=== PATIENT | female | born 1985 | race Caucasian/White ===

== ENCOUNTER 2016-12-09 11:28 | Inpatient (IN) | payer BC, OTHER ==
[2016-12-09] MEDS ORDERED: Lactated Ringer's 1,000 ML IV SCH (12:00)
--- NOTE | 2016-12-09 12:00 | OBADHP ---
Datetime: 12/09/2016 11:48 Admit Comment, IP Provider: chief complaint-contractions HPI 31 y/o at 38 weeks and 2 days with c/o contractions starting at 9 am.Patient denies vagin al bleeding or loss of fluid course uncomplicated PMH scoliosis PSH denies OBGYN HX ; [id number] Social hx denies tobacco, alcohol or illicit drug use Exam see exam section A/P 31 y/o at 38.2 wga in labor.GBS negative -admit -see order discussed with dr dale Pelvic Type - PN: Adequate Extremities - PN: Normal Abdomen - PN: Normal Back - PN: Normal Lungs - PN: Normal Heart - PN: Normal Neurologic - PN: Normal General - PN: Normal Contraction Comments Provider: irregular Gestation - Est Wks by US: 38.2 IP Hx Assessment: The History has been Reviewed and is Current Vital Signs Provider: Reviewed; Within Normal Limits IP Chief Complaint: Uterine contractions FHR Category Provider Fetus A: Category I Dilatation, Provider: 4-5 Effacement, Provider: 80 Station, Provider: -2 Genitourinary Exam: Normal DTRs - PN: Normal EGA AdmitDate IP: 38.2 IP Adm Impression: Term, intrauterine ; Active labor IP Admit Plan: Admit to unit; Initiate labor protocol
[2016-12-09 12:26] LABS: BASO % 0.2 % (0.0-2.0); EOS % 0.1 % (0.0-4.0); HEMOGLOBIN 12.5 g/dL (11.0-16.0); LYMPH # 2.1 K/uL (1.0-4.3); LYMPH % 20.7 % (20.0-40.0); MEAN CELL VOLUME 84.5 fL (81.0-99.0); MEAN CORPUSCULAR HEMOGLOBIN 28.5 pg (27.0-31.0); MEAN CORPUSCULAR HGB CONC 33.7 g/dL (33.0-37.0); MEAN PLATELET VOLUME 7.2 fL (7.2-11.7); MONO # 0.5 K/uL (0.0-0.8); MONO % 4.7 % (0.0-10.0); NEUT # 7.5 K/uL (1.8-7.0); NEUT % 74.3 % (50.0-75.0); RBC 4.4 Mil/uL (3.80-5.20); RED CELL DISTRIBUTION WIDTH 15.7 % (11.5-14.5); WHITE BLOOD COUNT 10.1 K/uL (4.8-10.8)
[2016-12-09 12:30] LABS: SQUAMOUS EPITHIAL 52 /hpf (0-5); URINE BACTERIA OCC (<OCC); URINE BILIRUBIN NEGATIVE (NEGATIVE); URINE BLOOD NEGATIVE (NEGATIVE); URINE CLARITY Hazy (Clear); URINE COLOR Yellow (YELLOW); URINE GLUCOSE (UA) NORMAL (Normal); URINE LEUKOCYTE ESTERASE 2+ Leu/uL (Negative); URINE NITRATE NEGATIVE (NEGATIVE); URINE PROTEIN NEGATIVE (NEGATIVE); URINE UROBILINOGEN NORMAL mg/dL (0.2-1.0)
[2016-12-09 12:33] LABS: ALBUMIN 3.4 g/dL (3.5-5.0)
[2016-12-09 12:36] LABS: AST/SGOT 16 U/L (14-36); GFR AFRICAN-AMERICAN > 60; GFR NON-AFRICAN AMERICAN > 60
[2016-12-09 12:37] LABS: ALT/SGPT 18 U/L (9-52); BLOOD UREA NITROGEN 8 mg/dL (7-17); CALCIUM 9.2 mg/dl (8.6-10.4)
[2016-12-09 13:10] LABS: HEPATITIS B SURFACE AG NEGATIVE (NEGATIVE)
[2016-12-09] MEDS ORDERED: Bupivacaine 0.125%/FentaNYL 200 ML EPI ONE (13:30)
--- NOTE | 2016-12-09 14:08 | OBPN ---
Datetime: 12/09/2016 14:04 IP Progress Impression: Normal progression of labor; Reassuring heart rate IP Procedures: Artificial ROM; Sterile Vag Exam IP Progress Plan: Continue present management Contraction Comments Provider: irregular IP Progress Note Comment: Asked by dr dale to arom S-patient comfortable with epidural FHT cat1 [place] irregular ctx sve 5/80/-2 A/P Patient at 38.2 wga in labor,gbs negative.arom done.cleaer fluid -continue to monitor closely -continue management as per dr dale Vital Signs Provider: Reviewed; Within Normal Limits FHR Category Provider Fetus A: Category I Dilatation, Provider: 5 Effacement, Provider: 80 Station, Provider: -2 Datetime: 12/09/2016 11:48 Gestation - Est Wks by US: 38.2
[2016-12-09] MEDS ORDERED: Oxytocin 30 UNIT 30 UNITS/500 ML BAG IV ONE (14:41)
[2016-12-09] MEDS ORDERED: Oxytocin 30 UNIT 30 UNITS/500 ML BAG IV PRN (15:00)
[2016-12-09] MEDS ORDERED: Oxytocin 30 UNIT 30 UNITS/500 ML BAG IV SCH (15:00)
[2016-12-09] MEDS ORDERED: Acetaminophen-Codeine 300/30 mg Tab PO PRN (17:19)
[2016-12-09] MEDS ORDERED: Benzocaine/Menthol 20%-0.5% Topical Spray (60 ml) TOP PRN (17:19)
--- NOTE | 2016-12-09 17:30 | OBDS ---
DELIVERY PERSONNEL Delivery Doctor: Solo Buckley MD Business System Manager: Gale Little RN Anesthesiologist: Edgardo Randall MD MATERNAL INFORMATION Delivery Anesthesia: Epidural Medications in Delivery: pitocin 20 Estimated Blood Loss (ml): 100 Placenta Cultured: No Maternal Complications: None Provider Comments: pt was fully dilated , pushing, atrumatic, spontaneous deliver of anterior follow ed by posterior shoulder followed by delivery body. both oral and nasal passages of the baby were bul b suctioned. umbilical cord was clamped and cut. baby was handed to mother on abdomen with rn magdy madsen. cord blood collected and sent x 2. Spontaneous dleivey rof intact placenta with membranes. Fi rst degree vaignal laceration with righ tlabial laceration noted and repaired iwth 2-0 chromic suture . good hemostaiss, no complicatins. Live male infnat agpars 9,9 weight of 6lbs 6 ounces ebl 100ml no complications LABOR SUMMARY EDC: 12/21/2016 00:00 No. Babies in Womb: 1 Attempted: No Labor Anesthesia: None LABOR INFORMATION Onset of Labor: 12/09/2016 14:00 Complete Dilatation: 12/09/2016 17:03 Oxytocin: Augmentation Group B Beta Strep: Negative Steroids Given: None Reason Steroids Not Administered: Not Applicable MEMBRANES Membranes Rupture Method: Artificial Rupture of Membranes: 12/09/2016 14:02 Length of Rupture (hrs): 3.07 Amniotic Fluid Color: Clear Amniotic Fluid Amount: Moderate Amniotic Fluid Odor: Normal STAGES OF LABOR Stage 1 hrs: 3 Stage 1 min: 3 Stage 2 hrs: 0 Stage 2 min: 3 Stage 3 hrs: 0 Stage 3 min: 4 Total Time in Labor hrs: 3 Total Time in Labor min: 10 VAGINAL DELIVERY Episiotomy: None Laceration Extension: First Degree Laceration Type: Perineal Laceration Repair Note: first degree vaginal and right labial laceration 2-0 chronic repaired . goo dhemostasis Initial Vag Sponge Count: 10 Final Vag Sponge Count: 10 Initial Vag Sharps Count: 1 Final Vag Sharps Count: 1 Sponge Count Correct: Yes Sharps Count Correct: Yes Count Comment: yes BABY A INFORMATION Delivery Date/Time: 12/09/2016 17:06 Method of Delivery: Vaginal Born in Route : No : N/A Forceps: N/A Vacuum Extraction: N/A Shoulder Dystocia : No SHOULDER DYSTOCIA BABY A Delivery Date/Time: 12/09/2016 17:06 PRESENTATION/POSITION BABY A Presentation: Cephalic Cephalic Presentation: Vertex Vertex Position: Right Occipital Anterior Breech Presentation: N/A PLACENTA INFORMATION BABY A Placenta Delivery Time : 12/09/2016 17:10 Placenta Method of Delivery: Spontaneous Placenta Status: Delivered SCORES BABY A Heart Rate 1 min: >100 bpm Resp Effort 1 min: Good Cry Reflex Irritability 1 min: Cough or Sneeze or Pulls Away Muscle Tone 1 min: Active Motion Color 1 min: Body [place], Extremities Blue Resuscitation Effort 1 min: Tactile Stimulation SCORE 1 MIN: 9 Heart Rate 5 min: >100 bpm Resp Effort 5 min: Good Cry Reflex Irritability 5 min: Cough or Sneeze or Pulls Away Muscle Tone 5 min: Active Motion Color 5 min: Body [place], Extremities Blue SCORE 5 MIN: 9 INFORMATION BABY A Gestational Age at Delivery: 38.0 Gestational Status: Term Outcome : Liveborn Condition : Stable Infant Sex: Male IDENTIFICATION/MEDS BABY A ID Band Number: [id number] ID Band Location: Left Leg; Left Arm Sensor Applied: Yes Sensor Number: [id number] Sensor Location : Cord Clamp WEIGHT/LENGTH BABY A Infant Birthweight (gms): 2905 Weight (lb): 6 Weight (oz): 6 Infant Length Inches: 19.50 Infant Length cms: 49.5 CORD INFORMATION BABY A No. Cord Vessels: 3 Nuchal Cord : N/A Cord Blood Taken: Yes Suction: Mouth; Nose ASSESSMENT BABY A Complications: None Infant Complications Other: none Physical Findings at Delivery: Within Normal Limits; Caput Succedaneum; Molding of the Head Sales And Service Associate/ALS Called : No Infant Care By: aparna Transferred To: Remains with Mother
[2016-12-10 09:10] LABS: HEMOGLOBIN 12.4 g/dL (11.0-16.0); MEAN CELL VOLUME 86.1 fL (81.0-99.0); MEAN CORPUSCULAR HEMOGLOBIN 28.4 pg (27.0-31.0); MEAN PLATELET VOLUME 7.4 fL (7.2-11.7); RBC 4.36 Mil/uL (3.80-5.20); RED CELL DISTRIBUTION WIDTH 15.7 % (11.5-14.5); WHITE BLOOD COUNT 12.2 K/uL (4.8-10.8)
--- NOTE | 2016-12-10 09:26 | OBPPN ---
Datetime: 12/10/2016 09:24 PP Pain Prov: Within normal limits PP Nausea Prov: Denies PP Flatus Prov: Yes PP BM Prov: No PP Breasts Prov: Normal PP Heart Prov: Normal PP Lungs Prov: Normal PP Abdomen/Uterus Prov: Normal PP Lochia Prov: Normal PP Vulva/Perineum Prov: Normal PP CVA Tenderness Prov: Normal PP Extremities Prov: Normal PP C/S Incision Prov: Not Applicable PP Progress Prov: Normal PP Impression Prov: Normal progression PP Plan Prov: Continue present management PP Progress Note Prov: pt seen and eamined report pain controlled with medciaitn. pt ambuating, void ing, breast feeding, denies heavy bleeding, denies fevrs, chills, nasue, vomitign, CP, SOB vss pe see above a/p s/p PPD #1 doing well -f/u am labs -aoin managmnet -ecnoaurg bresat feeding/ambaution IP PP Procedures: None Vital Signs Provider PP: Reviewed; Within Normal Limits
[2016-12-10] MEDS: Multiple Vitamins Tab PO SCH (11:29)
--- NOTE | 2016-12-11 07:35 | OBPPN ---
Datetime: 12/11/2016 07:33 PP Pain Prov: Within normal limits PP Nausea Prov: Denies PP Flatus Prov: Yes PP BM Prov: Yes PP Breasts Prov: Normal PP Heart Prov: Normal PP Lungs Prov: Normal PP Abdomen/Uterus Prov: Normal PP Lochia Prov: Normal PP Vulva/Perineum Prov: Normal PP CVA Tenderness Prov: Normal PP Extremities Prov: Normal PP C/S Incision Prov: Not Applicable PP Progress Prov: Normal PP Impression Prov: Normal progression PP Plan Prov: Discharge PP Progress Note Prov: pt seen and examined and reports pain is controlled with medication. pt is am bualting, voiding, breast feeding, denies heavy bleeding, denies fevrs, chills, nasue, vomiting, CP, SOB vss pe see above a/p s/p PPD #2 doing well, stable for discharge discharge home rto 6 week precautions given IP PP Procedures: None Vital Signs Provider PP: Reviewed; Within Normal Limits Datetime: 12/10/2016 09:24 PP Comments Phys Exam Prov: GEN NAD, AA ox 3 BREAST: NT, NOn engorbed b/l CVS RRR, +S1/S2 RESP: CTAB/l ABD: sfot, NT/ND Fuduns: Firm, at level of umbilsk, moderate lochia, non foul smelling EXT: negative homans sign, negative calf tendenress
--- NOTE | 2016-12-11 07:37 | OBDCSUM ---
Datetime: 12/11/2016 07:34 Discharged to, Provider: Home Follow up at, Provider: Dr Buckley Disch Instr Activity: Normal activity Disch Instr Diet: Regular Discharge Instructions, Provider: Routine instructions given Discharge Diagnosis, Provider: Term Delivered Discharge Time: 12/11/2016 09:00 Follow up in weeks, Provider: 6 weeks Disch Referrals: None Contraception discussed, Prov: Yes Disch Activity Restrictions: No sexual activity; Nothing in vagina - R[place], tampons, douche Discharge Comment, Provider: precautions given nothign per vagina x 6 week if heavy bleeding, pain, fever call MD/go to ER Contraception after Delivery: Not Planning to Use
[2016-12-11 08:11] VITALS: BP 90/60; PULSE 82; RESP 20; TEMP 97.8; O2SAT 98
[2016-12-11] MEDS: Multiple Vitamins Tab PO SCH (11:27)
== END 2016-12-11 12:50 | disposition home or self-care (01) | DRG 775 ==
LOC: C.EROB 11:28 → C.4D 11:50 → C.4M 19:15
PROVIDERS: ADMIT Obstetrics & Gynecology; ATTEND Obstetrics & Gynecology
PROC: 0HQ9XZZ Repair Perineum Skin, External Approach (ICD-10-PCS; principal; 2016-12-09)
PROC: 10E0XZZ Delivery of Products of Conception, External Approach (ICD-10-PCS; 2016-12-09)
DX: O70.0 First degree perineal laceration during delivery (principal); Z68.41 Body mass index [BMI] 40.0-44.9, adult; Z3A.38 38 weeks gestation of pregnancy; Z37.0 Single live birth